=== PATIENT | female | born 1975 | race Native Hawaiian/Other Pacific Islander ===

== ENCOUNTER 2016-12-19 11:56 | Outpatient (CLI) | payer OTHER, BC | END 2016-12-19 12:00 | disposition short-term general hospital (02) | LOC: AMB 11:56 | DX: M79.605 Pain in left leg (principal); M79.604 Pain in right leg; V49.88XA Car occupant (driver) (passenger) injured in other specified transport accidents, initial encounter; Y92.488 Other paved roadways as the place of occurrence of the external cause | CPT/HCPCS: A0425; A0429 ==

== ENCOUNTER 2016-12-19 12:00 | Emergency (ER) | payer OTHER, BC ==
[~2016-12-19] VITALS: Ht 172.7 cm; Wt 127.0 kg
[2016-12-19 12:05] VITALS: BP 162/104; TEMP 98.2
== END 2016-12-19 13:01 | disposition home or self-care (01) ==
LOC: EDP 12:00 → ED 12:00
DX: M47.894 Other spondylosis, thoracic region (principal); S80.12XA Contusion of left lower leg, initial encounter; V43.52XA Car driver injured in collision with other type car in traffic accident, initial encounter
CPT/HCPCS: 99282

== ENCOUNTER 2021-03-09 16:54 | Emergency (ER) | payer OTHER ==
[~2021-03-09] VITALS: Ht 172.7 cm; Wt 114.8 kg
[2021-03-09 19:39] LABS: PLATELET COUNT 225 K/uL (152-353)
[2021-03-09 20:01] LABS: POTASSIUM 3.9 mmol/L (3.6-5.2)
[2021-03-09 21:10] VITALS: BP 130/79; TEMP 96.7
== END 2021-03-09 21:10 | disposition home or self-care (01) ==
LOC: ED 16:54
PROVIDERS: Emergency Medicine Emergency Medical Services
DX: M54.89 Other dorsalgia (principal); Z90.3 Acquired absence of stomach [part of]; Z98.84 Bariatric surgery status
CPT/HCPCS: 36415; 80053; 83690; 85027; 99282; 99283; Q9963